=== PATIENT | male | born 1980 | race Caucasian/White ===

== ENCOUNTER 2019-09-08 18:25 | Outpatient (CLI) | payer MEDICAID | END 2019-09-08 18:26 | disposition EMS.NT | LOC: EMS 18:25 | PROVIDERS: ATTEND Surgery | DX: S61.211A Laceration without foreign body of left index finger without damage to nail, initial encounter (principal); S61.213A Laceration without foreign body of left middle finger without damage to nail, initial encounter; W29.8XXA Contact with other powered hand tools and household machinery, initial encounter ==

== ENCOUNTER 2019-11-13 05:36 | Outpatient (CLI) | payer MEDICAID | END 2019-11-13 05:37 | disposition short-term general hospital (02) | LOC: EMS 05:36 | PROVIDERS: ATTEND Surgery | DX: R55 Syncope and collapse (principal); R06.02 Shortness of breath | CPT/HCPCS: A0425; A0429; A0999 ==

== ENCOUNTER 2021-08-15 00:31 | Emergency (ER) | payer MEDICAID ==
[2021-08-15 00:58] LABS: BASOPHILS # (AUTO) 0.1 10^3/uL (0.0-0.1); BASOPHILS % (AUTO) 0.4 %; EOSINOPHILS % (AUTO) 0.2 %; HGB - HEMOGLOBIN 14.4 g/dL (14.0-18.0); LYMPHOCYTES % (AUTO) 5.9 %; MEAN CORPUSCULAR HEMOGLOBIN 27.8 pg (27.0-31.0); MEAN CORPUSCULAR HGB CONC 31.3 g/dL (32.0-36.0); MEAN CORPUSCULAR VOLUME 88.8 fL (80.0-94.0); MEAN PLATELET VOLUME 9.8 fL (7.4-11.4); MONOCYTES # (AUTO) 0.7 10^3/uL (0.0-1.0); NEUTROPHILS # (AUTO) 14.9 10^3/uL (1.5-6.6); NEUTROPHILS % (AUTO) 89.1 %; PLT - PLATELET COUNT 401 10^3/uL (130-450); RED BLOOD COUNT 5.18 10^6/uL (4.70-6.10); RED CELL DISTRIBUTION WIDTH 12.8 % (12.0-15.0); WHITE BLOOD COUNT 16.7 x10^3/uL (4.8-10.8)
[2021-08-15] MEDS: SODIUM CHLORIDE 0.9% 1,000 ML IV STA (01:04)
[2021-08-15] MEDS: ONDANSETRON 4 MG/2 ML VIAL IVP STA (01:04)
[2021-08-15] MEDS: KETOROLAC 15 MG/ML VIAL IVP STA (01:05)
[2021-08-15] MEDS: FAMOTIDINE 20 MG/2 ML VIAL IVP STA (01:06)
--- NOTE | 2021-08-15 01:06 | ED Physician Documentation ---
History of Present Illness - Stated complaint Stated Complaint: ABD PX/V/DIARRHEA - Chief complaint Chief Complaint: Abd Pain - History obtained from History obtained from: Patient - Additonal information Additional information: 40yM with pmh sinus pause s/p pacemaker, no other medical problems, p/w stomach upset and constipation X 1 week after he stopped drinking coffee. He develeoped progressively worsening gradual onset epigastric and periumbilical abd pain today radiating diffusely a/w one watery stool and one episode of nbnb n/v. currently 9/10 severity. denies abd surgeries. denies fevers. patient took first dose of stool softener today but otherwise is not on a bowel regimen. denies urinary sx. Review of Systems Ten Systems: 10 systems reviewed and negative Constitutional: denies: Fever, Chills Cardiac: denies: Chest pain / pressure Respiratory: denies: Dyspnea GI: reports: Abdominal Pain, Nausea, Vomiting, Constipation, Diarrhea : denies: Dysuria PD PAST MEDICAL HISTORY - Past Medical History Cardiovascular: Arrhythmia - Present Medications Home Medications: Ambulatory Orders Medication Instructions Recorded Confirmed Ondansetron Odt [Zofran] 4 mg TL Q6H PRN #10 tablet 08/15/21 - Allergies Allergies/Adverse Reactions: Allergies Allergy/AdvReac Type Severity Reaction Status Date / Time No Known Drug Allergies Allergy Verified 08/04/15 04:13 - Social History Does the pt smoke?: No Smoking Status: Never smoker Does the pt drink ETOH?: No Does the pt have substance abuse?: No - Immunizations Immunizations are current?: Yes PD ED PE NORMAL - Vitals Vital signs reviewed: Yes - General General: Alert and oriented X 3, No acute distress, Well developed/nourished - HEENT HEENT: Atraumatic, PERRL, EOMI - Neck Neck: Supple, no meningeal sign - Cardiac Cardiac: RRR - Respiratory Respiratory: No respiratory distress, Clear bilaterally - Abdomen Abdomen: Other (discomfort to palpation diffusely, worst in epigastric and periumbilical region) - Derm Derm: Normal color, Warm and dry - Extremities Extremities: No deformity - Neuro Neuro: Alert and oriented X 3 - Psych Psych: Normal mood, Normal affect Results - Vitals Vitals: Vital Signs - 24 hr 08/15/21 08/15/21 08/15/21 00:35 01:25 01:36 Temperature 36.3 C L 36.8 C Heart Rate 71 74 68 Respiratory 18 18 20 Rate Blood Pressure 128/84 H 134/84 H 129/84 H O2 Saturation 100 99 98 08/15/21 08/15/21 08/15/21 01:52 02:15 03:23 Temperature 36.3 C L Heart Rate 70 70 68 Respiratory 18 16 16 Rate Blood Pressure 129/84 H 126/105 H 111/68 O2 Saturation 98 100 98 Oxygen O2 Source Room air - Labs Labs: Laboratory Tests 08/15/21 08/15/21 00:49 00:49 WBC 16.7 H RBC 5.18 Hgb 14.4 Hct 46.0 MCV 88.8 MCH 27.8 MCHC 31.3 L RDW 12.8 Plt Count 401 MPV 9.8 Neut # (Auto) 14.9 H Lymph # (Auto) 1.0 L [place] # (Auto) 0.7 Eos # (Auto) 0.0 Baso # (Auto) 0.1 Absolute Nucleated RBC 0.00 Nucleated RBC % 0.0 Sodium 139 Potassium 4.8 Chloride 99 L Carbon Dioxide 29 Anion Gap 11.0 BUN 14 Creatinine 0.9 Estimated GFR (MDRD) 93 Glucose 168 H Calcium 9.4 Total Bilirubin 0.7 AST 26 ALT 22 Alkaline Phosphatase 70 Total Protein 8.4 H Albumin 4.6 Globulin 3.8 Albumin/Globulin Ratio 1.2 Lipase 40 PD MEDICAL DECISION MAKING - ED course ED course: 40yM p/w progressively severe abd pain and n/v, with upset stomach/suddenly worsening abd pain tonight. will obtain ct to r/o appendicitis given periumbilical pain and leukocytosis. lipase normal. Nausea and abdominal pain significantly improved in the ED. abdomen soft nontender. reviewed results with patient and screened for IBD risk factors. Denies blood in stool or vomit. denies FH IBD. He really doesn't have any previous history of stomach related issues except for a bout of c diff 5 years ago in the hospital. He does state the diarrhea today smelled foul and was watery and wanted to attempt to give stool sample but was unable to do so. patient feels comfortable going home with the understanding that he should return immediately if he has fever, new or worsening symptoms. return precautions discussed in detail. He will f/u with his doctor tomorrow. specimen cup provided for stool sample so he can get stool studies as an outpatient. Departure - Departure Clinical Impression: Diarrhea, Abdominal pain, Nausea and vomiting, Leukocytosis Condition: Stable Instructions: Abdominal Pain, ED Nausea Vomiting Prescriptions: Ondansetron Odt [Zofran] 4 mg TL Q6H PRN #10 tablet PRN Reason: Nausea / Vomiting Comments: You were seen in the emergency department for nausea, vomiting, abdominal pain and diarrhea. Your labwork was normal with the exception of an increased white blood cell count, indicating inflammation in the body. Your white blood cell count can also go up when you vomit or have diarrhea. Your CT showed mild thickening of the ortiz of the small intestines and fluid inside the small intestines. You have diverticulosis as well (outpouchings in the intestines) without any signs of infection of the diverticuli. Please follow up with your primary doctor in regards to all of these findings and to have stool studies done. Return to the emergency department if you have new or worsening symptoms or other concerns.
[2021-08-15 01:08] LABS: ALBUMIN 4.6 g/dL (3.2-5.5); ALBUMIN/GLOBULIN RATIO 1.2 (1.0-2.2); BILIRUBIN,TOTAL 0.7 mg/dL (0.2-1.0); CALCIUM 9.4 mg/dL (8.5-10.3); CREATININE 0.9 mg/dL (0.6-1.2); POTASSIUM 4.8 mmol/L (3.5-5.0); TOTAL PROTEIN 8.4 g/dL (6.7-8.2)
[2021-08-15] MEDS ORDERED: IOVERSOL 320 100 ML VIAL IVP ONE (01:25)
[2021-08-15] MEDS: IOVERSOL 320 100 ML VIAL IVP ONE (02:20)
[2021-08-15 03:23] VITALS: BP 111/68
--- NOTE | 2021-08-15 08:28 | CT Report ---
PROCEDURE: Abdomen/Pelvis W INDICATIONS: periumbilical pain, n/v CONTRAST: IV CONTRAST: Optiray 320 ml: 100 PO CONTRAST: *NO PO CONTRAST TECHNIQUE: After the administration of intravenous contrast, 5 mm thick sections acquired from the diaphragms to the symphysis. 5 mm thick coronal and sagittal reformats were acquired. For radiation dose reducti on, the following was used: automated exposure control, adjustment of mA and/or kV according to robi ent size. COMPARISON: None. FINDINGS: Image quality: Excellent. ABDOMEN: Lung bases: No pleural effusion. Heart size is within normal limits. Pacemaker leads. Solid organs: Liver is normal in size. Small hypodensities near the falciform ligament. This may be d ue to focal fatty infiltration and/or small cyst or hemangioma. Gallbladder is unremarkable. No calc ified gallstones. Biliary system is non dilated. Pancreas enhances normally. No splenomegaly. No ad renal nodules. Kidneys demonstrate normal size and enhancement, without hydronephrosis. Peritoneum and bowel: Stomach is not distended. There are multiple fluid-filled dilated loops of smal l bowel most pronounced in the lower abdomen. This emanates upstream from the terminal ileum. There a re a few small air-fluid levels. There is small bowel wall thickening and mural enhancement at the te rminal ileum, (03/18). The appendix is not dilated. No free fluid or air. Nodes and vessels: Shotty lymph nodes in the right lower quadrant, (3/60). One node measures 1.2 cm, (6/22). Suspect reactive etiology. Aorta and inferior vena cava are normal in size. Miscellaneous: No ventral hernias. PELVIS: Genitourinary: Bladder wall thickness is normal. Miscellaneous: No inguinal hernias or adenopathy. Bones: No suspicious bony lesions. No vertebral body compression fractures. There is sclerosis at the SI joints, (70). IMPRESSION: 1. Small bowel obstruction. Suspect level of obstruction at the terminal ileum. No pneumoperitoneum. Trace free fluid in the pelvis is felt to be reactive. -Consider follow-up colonoscopy and/or MRI enterography. 2. Thickening and mural enhancement at the terminal ileum. This could be seen in infectious/inflammat ory etiology such as Crohn's disease. 3. Shotty lymph nodes in the right lower quadrant are felt to be reactive. 4. Sclerosis at the SI joints most likely sacroiliitis. This report is concordant with the overnight preliminary interpretation. Reviewed by: gY Quijano MD on 08/15/2021 8:27 AM PST Approved by: Yg Quijano MD on 08/15/2021 8:[address] [facility] Station ID: [id number]
== END 2021-08-15 03:46 | disposition home or self-care (01) ==
LOC: ED 00:31
DX: R11.2 Nausea with vomiting, unspecified (principal); R19.7 Diarrhea, unspecified; R10.13 Epigastric pain; R10.33 Periumbilical pain; D72.829 Elevated white blood cell count, unspecified; K57.90 Diverticulosis of intestine, part unspecified, without perforation or abscess without bleeding; Z95.0 Presence of cardiac pacemaker
CPT/HCPCS: 36415; 74177; 80053; 83690; 85025; 96361; 96374; 96375; 99284; Q9967